=== PATIENT | female | born 1960 | race Caucasian/White ===

== ENCOUNTER 2017-02-16 14:45 | Emergency (ER) | payer BC ==
[~2017-02-16] VITALS: Ht 170.2 cm; Wt 108.1 kg
[~2017-02-16 14:45] MED LIST: DICY10CA48 PO; LEVO175T9 PO; SERT100T12 PO; TRAM50TA4 PO
--- OUTSIDE RECORDS SUMMARY | 2017-02-16 14:49 | XMS REPORT | CCD ---
Author Author KOBY TANG Organization Unknown Address [address] [place], [place] [id number] Phone 0 Care Team Providers Care Gse Mechanic Name Role Phone Dick TAYLOR Attending Physician 0 Dick TAYLOR Primary Surgeon 0 Vital Signs Unknown or Not Available. Allergies Allergy Code Allergy Type Reaction Status SULFA (sulfonamide) 0 Drug allergy Active Procedures Unknown or Not Available. History of Immunizations Unknown or Not Available. Problems Unknown or Not Available. Results COMP METABOLIC - Collect Date/Time: 07/02/2016 02:05 Test Name Code Test Result Test Units Test Ref Range GLUCOSE 201 mg/dL L=70 H=110 BUN 25 mg/dL L=7 H=18 CREATININE 1.12 mg/ dL L=0.60 H=1.30 AGE 56 YEARS GFR 50.0 SODIUM 140 mmol/L L=136 H=145 POTASSIUM 3.8 mmol/ L L=3.5 H=5.1 CHLORIDE 104 mmol/L L=98 H=107 CO2 29 mmol/L L=21 H=32 CALCIUM 8.7 mg/dL L=8.5 H=10.1 AST 33 U/L L=15 H=37 ALT 66 U/L L=12 H=78 ALKALINE PHOS 107 U/ L L=50 H=136 TOTAL PROTEIN 7.4 g/ dL L=6.4 H=8.2 ALBUMIN 3.6 g/dL L=3.4 H=5.0 TOTAL BILI 0.40 mg/ dL L=0.00 H=1.00 CBC W/ DIFF - Collect Date/Time: 07/02/2016 02:05 Test Name Code Test Result Test Units Test Ref Range WBC 12.3 x10^3 L=4.8 H=10.8 RBC 4.49 x10^6 L=4.20 H=5.40 HEMOGLOBIN 13.3 g/ dL L=12.0 H=16.0 HEMATOCRIT 40.5 % L=37.0 H=47.0 MCV 90 fL L=80 H=100 MCH 29.6 pg L=27.0 H=33.0 MCHC 32.7 g/dL L=33.0 H=37.0 RDW 13.2 % L=11.5 H=14.5 PLATELETS 401 x10^3 L=150 H=450 MPV 7.5 fL L=7.8 H=11.0 NEUTROPHILS 64.7 % L=40.0 H=80.0 LYMPHOCYTES 24.0 % L=20.0 H=45.0 MONOCYTES 9.0 % L=0.0 H=10.0 EOSINOPHILS 1.8 % L=0.0 H=5.0 BASOPHILS 0.5 % L=0.0 H=2.0 REFLEX MAN DIFF NO N /A UA AUTO W/ MICRO - Collect Date/Time: 07/02/2016 01:45 Test Name Code Test Result Test Units Test Ref Range COLOR Yellow N/A NORMAL: Yellow APPEARANCE Clear N/ A NORMAL: Clear GLUCOSE Negative N/ A NORMAL: Negative BILIRUBIN Negative N /A NORMAL: Negative KETONE Negative N/A NORMAL: Negative SPEC GRAVITY >=1.030 N/A NORMAL: 1.005-1.030 BLOOD Large N/A NORMAL: Negative PROTEIN Negative N/ A NORMAL: Negative PH 5.0 N/A NORMAL: 5.0-8.0 UROBILINOGEN 0.2 N/ A NORMAL: Negative NITRITE Negative N/ A NORMAL: Negative LEUKOCYTES Negative N/A NORMAL: Negative MICRO RBC TNTC N/A NORMAL: 0-2 MICRO WBC 0-2 N/A NORMAL: 0-2 BACTERIA Trace N/A NORMAL: None-Trace EPI CELLS 5-10 N/A NORMAL: 0-15 MUCUS Small N/A NORMAL: None-Small AMORPHOUS None Seen N/A NORMAL: None Seen YEAST None Seen N/A NORMAL: None Seen CRYSTALS Calcium O N /A NORMAL: None Seen CAST None Seen N/A NORMAL: None Seen URINE CULTURE? NO N/ A CALCULI URINARY WITH PHOTO - Collect Date/Time: 07/02/2016 09:30 Test Name Code Test Result Test Units Test Ref Range Weight 9804-6 35.0 mg Ca oxalate dihydrate 80223-3 10 % Ca oxalate monohydr. 75406-1 82 % Calcium phosphate 40557-4 3 % Uric acid 38097-2 5 % Color 9796-4 Brown N/ A Size 9802-0 6x3x2 N/A Magnesium natividad phos 13774-9 IMAGE PROCESSING ENGINEER N/A Uric acid dihydrate 38075-7 IMAGE PROCESSING ENGINEER N/A Ammonium acid urate 56787-8 IMAGE PROCESSING ENGINEER N/A Sodium acid urate 27242-8 IMAGE PROCESSING ENGINEER N/A Ca hydrogen phos. 33694-2 IMAGE PROCESSING ENGINEER N/A Cystine 46941-6 IMAGE PROCESSING ENGINEER N/ A Cholesterol 98640-8 IMAGE PROCESSING ENGINEER N/A Calcium bilirubinate 61058-1 IMAGE PROCESSING ENGINEER N/A Calcium carbonate 70882-6 IMAGE PROCESSING ENGINEER N/A Triamterene 45464-4 IMAGE PROCESSING ENGINEER N/A Newberyite 92541-1 IMAGE PROCESSING ENGINEER N/A Dried Blood 46560-1 IMAGE PROCESSING ENGINEER N/A Cellular Material 62964-4 IMAGE PROCESSING ENGINEER N/A Nidus 12268-2 No Nidus visualized N/A Shell IMAGE PROCESSING ENGINEER N/A Surface Crystals Comment: N/A Comment 63512-7 IMAGE PROCESSING ENGINEER N/ A Comment 13545-4 IMAGE PROCESSING ENGINEER N/ A Active Medications Unknown or Not Available. Medications Administered During Visit Unknown or Not Available. Encounters Encounter Diagnosis Diagnosis Code Start Date Calculus of kidney N200 07/02/2016 Social History Smoking Status Code Start Date End Date Former smoker [id number] Patient Decision Aids Unknown or Not Available. Discharge Instructions You were admitted to [facility] on 07/02/2016 01:30 with a principal diagnosis of Calculus of kidney You had the following tests done: CALCULI URINARY WITH PHOTO CBC W/ DIFF COMP METABOLIC UA AUTO W/ MICRO You were discharged from [facility] on 07/02/2016 11:20 Should you have any questions prior to discharge, please contact a member of your healthcare team. If you have left the hospital and have any questions, please contact your primary care physician. Chief Complaint and Reason For Visit Chief Complaint Date of Onset FLANK PAIN Function Status Unknown or Not Available. Plan of Care Unknown or Not Available. Referral/Transition of Care Unknown or Not Available.
--- OUTSIDE RECORDS SUMMARY | 2017-02-16 14:49 | XMS REPORT | CCD ---
Author Author KOBY TANG Organization Unknown Address [address], [place] [address] Phone 0 Care Team Providers Care Weaving Inspector Name Role Phone MARY HOLLEY Attending Physician [phone] Vital Signs Unknown or Not Available. Allergies Allergy Code Allergy Type Reaction Status SULFA (sulfonamide) 0 Drug allergy Active Procedures Unknown or Not Available. History of Immunizations Unknown or Not Available. Problems Unknown or Not Available. Results Unknown or Not Available. Active Medications Unknown or Not Available. Medications Administered During Visit Unknown or Not Available. Encounters Unknown or Not Available. Social History Smoking Status Code Start Date End Date Former smoker [id number] Patient Decision Aids Unknown or Not Available. Discharge Instructions You were admitted to [facility] on 11/30/2016 10:37 You were discharged from [facility] on 11/30/2016 10:37 Should you have any questions prior to discharge, please contact a member of your healthcare team. If you have left the hospital and have any questions, please contact your primary care physician. Chief Complaint and Reason For Visit Chief Complaint Date of Onset SPIDER BITE Function Status Unknown or Not Available. Plan of Care Unknown or Not Available. Referral/Transition of Care Unknown or Not Available.
--- OUTSIDE RECORDS SUMMARY | 2017-02-16 14:49 | XMS REPORT | CCD ---
Author Author KOBY TANG Organization Unknown Address [address], [place] [id number] Phone 0 Care Team Providers Care Compounding Technician Name Role Phone TESS PATEL Attending Physician 0 Vital Signs Unknown or Not Available. Allergies Allergy Code Allergy Type Reaction Status SULFA (sulfonamide) 0 Drug allergy Active Procedures Unknown or Not Available. History of Immunizations Unknown or Not Available. Problems Unknown or Not Available. Results CULTURE URINE - Collect Date/Time: 06/27/2016 12:30 Test Name Code Test Result Test Units Test Ref Range SPEC SOURCE: CLEAN CATCH N/A Urine Culture, Routine 630-4 Final report N/A Active Medications Unknown or Not Available. Medications Administered During Visit Unknown or Not Available. Encounters Encounter Diagnosis Diagnosis Code Start Date Urinary tract infection, site not specified N390 06/27/2016 Social History Smoking Status Code Start Date End Date Former smoker [id number] Patient Decision Aids Unknown or Not Available. Discharge Instructions You were admitted to [facility] on 06/27/2016 12:54 with a principal diagnosis of Urinary tract infection, site not specified You had the following tests done: CULTURE URINE You were discharged from [facility] on 06/27/2016 12:54 Should you have any questions prior to discharge, please contact a member of your healthcare team. If you have left the hospital and have any questions, please contact your primary care physician. Chief Complaint and Reason For Visit Chief Complaint Date of Onset LAB Function Status Unknown or Not Available. Plan of Care Unknown or Not Available. Referral/Transition of Care Unknown or Not Available.
--- OUTSIDE RECORDS SUMMARY | 2017-02-16 14:49 | XMS REPORT | CCD ---
Author Author MAX DAWKINS Organization Unknown Address [address], [place] [id number] Phone 0 Care Team Providers Care Dairy Powder Mixer Operator Name Role Phone TESS PATEL Attending Physician 0 TESS PATEL Primary Surgeon 0 Vital Signs Vital Sign Value Unit Date/Time Recent/Initial? Weight Measured 220 lbs 03/09/2015 00:12 Initial VS Height 20.2 in 2014 00:12 Initial VS BMI (Body Mass Index) 79.07 kg/m^2 03/09/2015 00:12 Initial VS BSA (Body Surface Area) 1.19 m^2 03/09/2015 00:12 Initial VS Allergies Allergy Code Allergy Type Reaction Status SULFA (sulfonamide) 0 Drug allergy Active Procedures Unknown or Not Available. History of Immunizations Unknown or Not Available. Problems Unknown or Not Available. Results COMP METABOLIC - Collect Date/Time: 03/08/2015 23:20 Test Name Code Test Result Test Units Test Ref Range GLUCOSE 136 mg/dL L=70 H=110 BUN 18 mg/dL L=7 H=18 CREATININE 1.10 mg/ dL L=0.60 H=1.30 AGE 54 YEARS GFR 54.6 SODIUM 140 mmol/L L=136 H=145 POTASSIUM 4.1 mmol/ L L=3.5 H=5.1 CHLORIDE 104 mmol/L L=98 H=107 CO2 28 mmol/L L=21 H=32 CALCIUM 8.4 mg/dL L=8.5 H=10.1 AST 19 U/L L=15 H=37 ALT 24 U/L L=12 H=78 ALKALINE PHOS 113 U/ L L=50 H=136 TOTAL PROTEIN 7.5 g/ dL L=6.4 H=8.2 ALBUMIN 3.5 g/dL L=3.4 H=5.0 TOTAL BILI 0.40 mg/ dL L=0.00 H=1.00 THYROXINE (T4) FREE - Collect Date/Time: 03/08/2015 23:20 Test Name Code Test Result Test Units Test Ref Range FT4 0.99 ng/dL L=0.76 H=1.46 TSH - Collect Date/Time: 03/08/2015 23:20 Test Name Code Test Result Test Units Test Ref Range TSH 5.64 uIU/mL L=0.36 H=3.74 CBC W/ DIFF - Collect Date/Time: 03/08/2015 23:20 Test Name Code Test Result Test Units Test Ref Range WBC 11.5 x10^3 L=4.8 H=10.8 RBC 4.40 x10^6 L=4.20 H=5.40 HEMOGLOBIN 13.3 g/ dL L=12.0 H=16.0 HEMATOCRIT 40.0 % L=37.0 H=47.0 MCV 91 fL L=80 H=100 MCH 30.3 pg L=27.0 H=33.0 MCHC 33.3 g/dL L=33.0 H=37.0 RDW 13.5 % L=11.5 H=14.5 PLATELETS 407 x10^3 L=150 H=450 MPV 6.9 fL L=7.8 H=11.0 NEUTROPHILS 65.7 % L=40.0 H=80.0 LYMPHOCYTES 18.5 % L=20.0 H=45.0 MONOCYTES 11.2 % L=0.0 H=10.0 EOSINOPHILS 3.9 % L=0.0 H=5.0 BASOPHILS 0.7 % L=0.0 H=2.0 REFLEX MAN DIFF NO N /A UA AUTO W/ MICRO - Collect Date/Time: 03/08/2015 23:20 Test Name Code Test Result Test Units Test Ref Range COLOR Yellow N/A NORMAL: Yellow APPEARANCE SlCloudy N/A NORMAL: Clear GLUCOSE Negative N/ A NORMAL: Negative BILIRUBIN Negative N /A NORMAL: Negative KETONE Negative N/A NORMAL: Negative SPEC GRAVITY 1.025 N /A NORMAL: 1.005-1.030 BLOOD Large N/A NORMAL: Negative PROTEIN >=300 N/A NORMAL: Negative PH 7.0 N/A NORMAL: 5.0-8.0 UROBILINOGEN 1.0 N/ A NORMAL: Negative NITRITE Negative N/ A NORMAL: Negative LEUKOCYTES Trace N/ A NORMAL: Negative MICRO RBC 10-20 N/A NORMAL: 0-2 MICRO WBC 0-2 N/A NORMAL: 0-2 BACTERIA Trace N/A NORMAL: None-Trace EPI CELLS 0-5 N/A NORMAL: 0-15 MUCUS Small N/A NORMAL: None-Small AMORPHOUS None Seen N/A NORMAL: None Seen YEAST None Seen N/A NORMAL: None Seen CRYSTALS None Seen N /A NORMAL: None Seen CAST None Seen N/A NORMAL: None Seen URINE CULTURE? NO N/ A Active Medications Unknown or Not Available. Medications Administered During Visit Unknown or Not Available. Encounters Encounter Diagnosis Diagnosis Code Start Date CALCULUS OF KIDNEY 5920 03/08/2015 Social History Smoking Status Code Start Date End Date Former smoker [id number] Patient Decision Aids Unknown or Not Available. Discharge Instructions You were admitted to [facility] on 03/08/2015 with a principal diagnosis of CALCULUS OF KIDNEY. You were discharged from [facility] on 03/09/2015. Should you have any questions prior to discharge, please contact a member of your healthcare team. If you have left the hospital and have any questions, please contact your primary care physician. Chief Complaint and Reason For Visit Chief Complaint Date of Onset Rt flank pain 03/08/2015 Function Status Unknown or Not Available. Plan of Care Unknown or Not Available. Referral/Transition of Care Unknown or Not Available.
--- OUTSIDE RECORDS SUMMARY | 2017-02-16 14:49 | XMS REPORT | CCD ---
Author Author KOBY TANG Organization Unknown Address [address] [place], [place] [phone] Phone 0 Care Team Providers Care Radiology Physician Assistant Name Role Phone Alicia LIVINGSTON Attending Physician 0 Alicia LIVINGSTON Primary Surgeon 0 Vital Signs Unknown or Not Available. Allergies Allergy Code Allergy Type Reaction Status SULFA (sulfonamide) 0 Drug allergy Active Procedures Unknown or Not Available. History of Immunizations Unknown or Not Available. Problems Unknown or Not Available. Results CBC W/ DIFF - Collect Date/Time: 08/29/2016 17:20 Test Name Code Test Result Test Units Test Ref Range WBC 11.8 x10^3 L=4.8 H=10.8 RBC 4.71 x10^6 L=4.20 H=5.40 HEMOGLOBIN 14.4 g/ dL L=12.0 H=16.0 HEMATOCRIT 42.6 % L=37.0 H=47.0 MCV 90 fL L=80 H=100 MCH 30.5 pg L=27.0 H=33.0 MCHC 33.7 g/dL L=33.0 H=37.0 RDW 13.7 % L=11.5 H=14.5 PLATELETS 404 x10^3 L=150 H=450 MPV 7.3 fL L=7.8 H=11.0 NEUTROPHILS 66.9 % L=40.0 H=80.0 LYMPHOCYTES 25.0 % L=20.0 H=45.0 MONOCYTES 6.4 % L=0.0 H=10.0 EOSINOPHILS 1.7 % L=0.0 H=5.0 BASOPHILS 0.0 % L=0.0 H=2.0 REFLEX MAN DIFF NO N /A PT/INR - Collect Date/Time: 08/29/2016 17:20 Test Name Code Test Result Test Units Test Ref Range PT 10.5 Secs L=9.4 H=11.0 INR 1.03 L=0.00 H=4.00 PTT - Collect Date/Time: 08/29/2016 17:20 Test Name Code Test Result Test Units Test Ref Range PTT 25.7 Secs L=22.0 H=30.0 Active Medications Unknown or Not Available. Medications Administered During Visit Unknown or Not Available. Encounters Encounter Diagnosis Diagnosis Code Start Date Epistaxis R040 08/29/2016 Social History Smoking Status Code Start Date End Date Former smoker [id number] Patient Decision Aids Unknown or Not Available. Discharge Instructions You were admitted to [facility] on 08/29/2016 16:26 with a principal diagnosis of Epistaxis You had the following tests done: CBC W / DIFF PT/INR PTT You were discharged from [facility] on 08/29/2016 18:18 Should you have any questions prior to discharge, please contact a member of your healthcare team. If you have left the hospital and have any questions, please contact your primary care physician. Chief Complaint and Reason For Visit Chief Complaint Date of Onset NOSE BLEED Function Status Unknown or Not Available. Plan of Care Unknown or Not Available. Referral/Transition of Care Unknown or Not Available.
--- OUTSIDE RECORDS SUMMARY | 2017-02-16 14:49 | XMS REPORT | Continuity of Care Document ---
Demographics Preferred Language Unknown Marital Status Unknown Muslim Affiliation Unknown Race Unknown Ethnic Group Unknown Author Author [facility] Organization [facility] Address Unknown Phone Unavailable Allergies Medications Problems Procedures Results Encounters ACCT No. Visit Date/Time Discharge Status Pt. Type Provider Facility Loc./Unit Complaint [id number] 12/12/2016 08:22:00 ACT Unknown [id number] 10/11/2016 09:48:00 ACT Unknown [id number] 08/19/2016 14:06:00 ACT Unknown [id number] 08/19/2016 14:06:00 ACT Unknown [id number] 08/19/2016 13:54:00 ACT Unknown [id number] 11/03/2015 12:39:00 ACT Unknown [id number] 11/08/2014 07:55:00 ACT Unknown [id number] 04/21/2014 08:54:00 ACT Unknown
--- OUTSIDE RECORDS SUMMARY | 2017-02-16 14:49 | XMS REPORT | CCD ---
Author Author KOBY TANG Organization Unknown Address [address], [place] [id number] Phone 0 Care Team Providers Care Print Decorator Name Role Phone Alicia GOODE Attending Physician [phone] Vital Signs Unknown or Not Available. Allergies Allergy Code Allergy Type Reaction Status SULFA (sulfonamide) 0 Drug allergy Active Procedures Unknown or Not Available. History of Immunizations Unknown or Not Available. Problems Unknown or Not Available. Results Unknown or Not Available. Active Medications Unknown or Not Available. Medications Administered During Visit Unknown or Not Available. Encounters Encounter Diagnosis Diagnosis Code Start Date Displaced fracture of neck of left radius, subsequent encounter for closed fracture with routine healing [id number] 07/2016 Social History Smoking Status Code Start Date End Date Former smoker [id number] Patient Decision Aids Unknown or Not Available. Discharge Instructions You were admitted to [facility] on 05/22/2016 13:13 with a principal diagnosis of Disp fx of neck of left rad, subs for clos fx w routn h You were discharged from [facility] Should you have any questions prior to discharge, please contact a member of your healthcare team. If you have left the hospital and have any questions, please contact your primary care physician. Chief Complaint and Reason For Visit Chief Complaint Date of Onset L RADIAL NECK L WRIST PAIN Function Status Unknown or Not Available. Plan of Care Unknown or Not Available. Referral/Transition of Care Unknown or Not Available.
--- OUTSIDE RECORDS SUMMARY | 2017-02-16 14:49 | XMS REPORT | CCD ---
Author Author KOBY TANG Organization Unknown Address [address] [place], [place] [id number] Phone 0 Care Team Providers Care Movie Shot Camera Operator Name Role Phone TESS PATEL Attending Physician 0 Vital Signs Unknown or Not Available. Allergies Allergy Code Allergy Type Reaction Status SULFA (sulfonamide) 0 Drug allergy Active Procedures Unknown or Not Available. History of Immunizations Unknown or Not Available. Problems Unknown or Not Available. Results TSH - Collect Date/Time: 10/04/2015 15:25 Test Name Code Test Result Test Units Test Ref Range TSH 2.41 uIU/mL L=0.36 H=3.74 Active Medications Unknown or Not Available. Medications Administered During Visit Unknown or Not Available. Encounters Encounter Diagnosis Diagnosis Code Start Date Hypothyroidism, unspecified E039 2014 Social History Smoking Status Code Start Date End Date Former smoker [id number] Patient Decision Aids Unknown or Not Available. Discharge Instructions You were admitted to [facility] on 10/04/2015 with a principal diagnosis of Hypothyroidism, unspecified. You were discharged from [facility] on 10/04/2015. Should you have any questions prior to [...]
--- OUTSIDE RECORDS SUMMARY | 2017-02-16 14:49 | XMS REPORT | CCD ---
Author Author KOBY TANG Organization Unknown Address [address] [place], [place] [id number] Phone 0 Care Team Providers Care Environmental Test Technician Name Role Phone TESS PATEL Attending Physician 0 Vital Signs Unknown or Not Available. Allergies Allergy Code Allergy Type Reaction Status SULFA (sulfonamide) 0 Drug allergy Active Procedures Procedure Code Procedure Type Date CHEST [id number] 10/09/2015 History of Immunizations Unknown or Not Available. Problems Unknown or Not Available. Results Unknown or Not Available. Active Medications Unknown or Not Available. Medications Administered During Visit Unknown or Not Available. Encounters Encounter Diagnosis Diagnosis Code Start Date Cough R05 10/09/2015 Social History Smoking Status Code Start Date End Date Former smoker [id number] Patient Decision Aids Unknown or Not Available. Discharge Instructions You were admitted to [facility] on 10/09/2015 with a principal diagnosis of Cough. You were discharged from [facility] on 10/09/2015. Should you have any questions prior to discharge, please contact a member of your healthcare team. If you have left the hospital and have any questions, please contact your primary care physician. Chief Complaint and Reason For Visit Chief Complaint Date of Onset CXR Function Status Unknown or Not Available. Plan of Care Unknown or Not Available. Referral/Transition of Care Unknown or Not Available.
[2017-02-16 14:50] VITALS: Ht 170.2 cm; Wt 108.1 kg
[2017-02-16] MEDS ORDERED: AMOX1TAB16 PO (15:23)
[2017-02-16] MEDS ORDERED: LEVO200T3 PO (15:23)
[2017-02-16] MEDS ORDERED: LEVO25TA4 PO (15:23)
[2017-02-16] MEDS ORDERED: GENT3.5O4 BOTH EYES (15:23)
--- NOTE | 2017-02-16 15:23 | ERPDOC ---
Departure Disposition Decision Date: February 16, 2017 Disposition Decision Time: 17:30 Disposition: 01 DISCHARGED HOME, SELF-CARE Impression Impression Impression: Primary Impression: Viral conjunctivitis of both eyes Severity: Moderate Condition: Stable Seen By: Physician and Mid-level Referrals: TESS PATEL APRN (Family) Patient Instructions: Conjunctivitis (ED) Problems/Meds/Labs Reviewed?: Yes Medications reviewed and manag: Yes Additional Instructions: You have a viral conjunctivitis. Stop using all antibiotics. Use Patanol 1 drop in each eye twice daily until improved. Follow treatment plan. If symptoms persist follow with an Technical Aide (eye medical doctor). Avoid rubbing your eyes. Follow up care ordered?: Yes Mental Status: Alert, Oriented HPI - EENT General General Chief Complaint: Eye Problems Stated Complaint: EYE PAIN Time Seen by Provider: 15:23 Source: patient HPI - EENT General Initial Comments 56 YO F presents to ED with red, watery itchy eyes. Says she was seen in 2-3 days ago by physician for redness and itching in right eye and started on polymyxin B eye drops. Had not change of symptoms so was then started on Augmentin orally. Had CT scan to R/O periorbital cellulits. Says optimistic in [place] and started on gentamicin eye ointment yesterday. Told if symptoms do not improve go to the ED. Patient says that redness, watering and itching as spread to left eye. Patient report rhinorrhea, sinus drainage and generalized body aches. Denies fever, chills, vision changes or eye pain. Location: eye (R), eye (L) Associated Symptoms: malaise, nasal congestion/drainage, DENIES: cough, ear drainage, facial pain/swelling, fever, sore throat Allergies: Coded Allergies: No Known Allergies (Unverified , 03/14/15) Past History Past Medical History Metabolic: hypothyroidism ENMT: sleep apnea Cardiac: DENIES: angina Respiratory: COPD, pneumonia GI: DENIES: ulcers Female: kidney stones Neurological: DENIES: seizures Musculoskeletal: DENIES: osteoarthritis Psychological: depression Surgical History Reproductive/: hysterectomy, other (Ureteral stent), tubal ligation Family History Family PMH: FOUND: other (noncontributory) Vaccines Hx Influenza Vaccination: No Hx Pneumococcal Vaccination: Yes (WITHIN PAST 5 YEARS) Social History Current Occupational Status: employed Review of Systems Constitutional Constitutional: DENIES: chills, dizziness, fever, weakness Eyes General: erythema, itching Lids/Accessories: DENIES: erythema, swelling Vision: DENIES: blurring, loss of visual bush ENMT Ears: DENIES: pain Sinuses: congestion, rhinorrhea Mouth/Throat: DENIES: sore throat Cardiovascular Cardiac: DENIES: chest pain, murmur Rhythm/Rate: DENIES: palpitations Pulmonary Respiratory: DENIES: cough, dyspnea GI Upper Abdomen: DENIES: nausea, pain, vomiting Lower Abdomen: DENIES: diarrhea, pain General: DENIES: dysuria, pain Musculoskeletal General: pain (genralized body aches) Integumentary Skin: DENIES: color change, itching, rash Neurological General: DENIES: ataxia, change in strength, numbness, paralysis/paresis, weakness Psychiatric Psychiatric: DENIES: anxiety, depression, nervousness Physical Exam General General Nourishment: well nourished, well developed, no acute distress, adult General Body Habitus: well groomed Vitals and Pain First Documented Vital Signs Date Time Temp Pulse Resp B/P Pulse Ox O2 Delivery O2 Flow Rate FiO2 02/16/17 14:50 98.4 88 16 147/68 97 Room Air Weight: Kilograms: 108.100 Height (feet): 5 Height (inches): 7.00 Triage Pain Scale: Eyes Eyes Detail : Location: Bilateral Pupils: FOUND 4 mm, FOUND Reactivity Normal Cornea: FOUND no abnormalities Conjunctiva: FOUND injected, FOUND watery exudates, NOT FOUND hemorrhage, NOT FOUND purulent exudates Sclera: NOT FOUND defect, NOT FOUND hemorrhage Anterior Chamber: FOUND no abnormalities Lens: FOUND no abnormalities Eyelids: NOT FOUND swelling Visual Acuity/Best: FOUND 20/40 ( OD, OS and OU ) ENMT (brief) ENMT Brief: FOUND: TM clear, TM good light reflex, ear canals clear, mucosa moist, nasal exudate (clear), NOT FOUND: pharnyx erythema Neck (brief) Neck: FOUND: trachea midline Respiratory (brief) Respiratory: FOUND: clear all bush, equal bilaterally, symmetrical Cardiovascular (brief) Cardiac: FOUND: regular rate, regular rhythm Musculoskeletal (brief) Musculoskeletal Brief: NOT FOUND: deformity, loss of motion Integumentary (brief) Integumentary Brief: FOUND: dry, pink, warm Neurologic (brief) Neurological Brief: FOUND: CN w/o gross def to obs, motor-no gross deficits, sensory-no gross deficits Psychiatric (brief) Psychiatric Brief: FOUND: alert, normal affect, oriented Differential Diagnoses Considering: Cellulitis, Conjunctivitis, Ulceration, URI Progress Results/Orders Orders Procedure Category Date Status Time Cbc W/Auto LAB 02/16/17 Complete Diff-Reflex Manual Diphenhydramine PHA 02/16/17 Complete (Benadryl) 15:45 Diphenhydramine PHA 02/16/17 Complete (Benadryl) 16:15 Olopatadine 0.1% Eye PHA 02/16/17 Complete Drops (Patanol) 17:15 Lab Results Laboratory Tests Test 02/16/17 15:53 White Blood Count 8.2T/MM3 Red Blood Count 4.35M/MM3 Hemoglobin 13.0GM/DL Hematocrit 42.1% Mean Corpuscular Volume 96.8UM3 Mean Corpuscular Hemoglobin 29.9UUG Mean Corpuscular Hemoglobin Concent 30.9GM/DL RDW Standard Deviation 46.7FL Platelet Count 299T/MM3 Mean Platelet Volume 9.6UM3 Immature Granulocyte % (Auto) 1.0% Neutrophils (%) (Auto) 58.0% Lymphocytes (%) (Auto) 24.4% Monocytes (%) (Auto) 13.0% Eosinophils (%) (Auto) 2.6% Basophils (%) (Auto) 1.0% Absolute Immature Granulocyte (auto 0.08T/MM3 Absolute Neutrophils (auto) 4.8T/MM3 Absolute Lymphocytes (auto) 2.0T/MM3 Absolute Monocytes (auto) 1.1T/MM3 Absolute Eosinophils (auto) 0.2T/MM3 Absolute Basophils (auto) 0.1T/MM3 Medications Current ED Medications Diphenhydramine HCl (Benadryl) 50 mg O ONCE PO ; Start 02/16/17 at 15:45; Stop 02/16/17 at 16:09; Status DC Diphenhydramine HCl (Benadryl) 50 mg O ONCE PO Last administered on 02/16/17 16:11; Start 02/16/17 at 16:15; Stop 02/16/17 at 16:16; Status DC Olopatadine HCl (Patanol) 1 drop O ONCE BOTH EYES Last administered on 5/7/ 17at 17:39; Start 02/16/17 at 17:15; Stop 02/16/17 at 17:16; Status DC Progress Progress Patient reports improvement of itching of eyes after benadryl. History and exam findings are consistent with a viral conjunctivitis. I discussed with patient that she is not better because she has a viral conjunctivitis that will not respond to antibiotics. Patient verbalized understanding of treatment plan, follow up as needed with PCP or ophthalmologics and return precautions. Patient is to stop ophthalmic antibiotics. REED PATEL JOB DEVELOPER February 16, 2017 15:23
[2017-02-16] MEDS ORDERED: NEO/3.5O BOTH EYES (15:27)
[2017-02-16] MEDS ORDERED: EYEL1MED BOTH EYES (15:27)
--- NOTE | 2017-02-16 15:49 | NUR ---
LAB AT BEDSIDE FOR BLOOD DRAW.
[2017-02-16 15:57] LABS: BASOPHILS # (AUTO) 0.1 T/MM3 (0-0.2); EOSINOPHILS # (AUTO) 0.2 T/MM3 (0-0.5); EOSINOPHILS % (AUTO) 2.6 % (0-4); HCT - HEMATOCRIT 42.1 % (36-46); IMMATURE GRANULOCYTE # (AUTO) 0.08 T/MM3 (0.00-0.03); LYMPHOCYTES % (AUTO) 24.4 % (23-45); MEAN CORPUSCULAR HGB 29.9 UUG (26-34); MEAN CORPUSCULAR HGB CONC(MCHC 30.9 GM/DL (31-37); MEAN CORPUSCULAR VOLUME 96.8 UM3 (80-100); MEAN PLATELET VOLUME 9.6 UM3 (9.4-12.4); MONOCYTES # (AUTO) 1.1 T/MM3 (0-0.8); NEUTROPHILS #(AUTO)-ABSOLUTE 4.8 T/MM3 (1.8-7.7); RED BLOOD COUNT 4.35 M/MM3 (4.00-5.20); WBC - WHITE BLOOD COUNT 8.2 T/MM3 (4.5-11.0)
--- NOTE | 2017-02-16 16:11 | NUR ---
MED PT GIVEN INSTRUCTION REGARDING BENADRYL. UNDERSTANDING VERBALIZED.
[2017-02-16] MEDS ORDERED: DiphenhydrAMINE 25 MG CAPSULE PO ONE (16:15)
--- NOTE | 2017-02-16 17:03 | NUR ---
DR DR APARICIO AT BEDSIDE.
[2017-02-16] MEDS ORDERED: OLOPATADINE 0.1% EYE DROPS (BID) 5ml BOTH EYES ONE (17:15)
--- OUTSIDE RECORDS SUMMARY | 2017-02-16 17:25 | XMS REPORT | Continuity of Care Document ---
Demographics Preferred Language Unknown Marital Status Unknown Anabaptism Affiliation Unknown Race Unknown Ethnic Group Unknown Author Author [facility] Organization [facility] Address Unknown Phone Unavailable Allergies Medications Problems Procedures Results Encounters ACCT No. Visit Date/Time Discharge Status Pt. Type Provider Facility Loc./Unit Complaint [id number] 12/12/2016 08:22:00 ACT Unknown [id number] 10/11/2016 09:48:00 ACT Unknown [id number] 08/19/2016 14:06:00 ACT Unknown [id number] 08/19/2016 14:06:00 ACT Unknown [id number] 08/19/2016 13:54:00 ACT Unknown [id number] 11/03/2015 12:39:00 ACT Unknown [id number] 11/08/2014 07:55:00 ACT Unknown [id number] 04/21/2014 08:54:00 ACT Unknown
[2017-02-16 17:43] VITALS: BP 143/73; PULSE 79; RESP 18; TEMP 98.4; O2SAT 96
== END 2017-02-16 17:43 | disposition home or self-care (01) ==
LOC: ED 14:45
DX: B30.9 Viral conjunctivitis, unspecified (principal)
CPT/HCPCS: 36415; 85025